=== PATIENT | female | born 1995 | race Caucasian/White ===

== ENCOUNTER 2018-12-14 21:18 | Emergency (ER) | payer BC ==
[2018-12-14 21:26] VITALS: BP 129/79
--- NOTE | 2018-12-14 21:41 | EDPHY ---
H & P Stated Complaint: tripped hit moth on counter top teeth wetn through lip, teeth intack Time Seen by Provider: 12/14/18 21:34 HPI/ROS: HPI: This is a 23-year-old female who presents with Chief Complaint: tripped hit mouth on counter top teeth went through lip, teeth intact Location: Upper lip and lower lip Quality: Injury Duration: Prior to arrival Signs and Symptoms: + bleeding, no radiation, no numbness, no weakness, no tingling, no incontinence, no decreased range of motion, no swelling, + pain, no fever Timing: Acute Severity: Moderate Context: Patient is student at [employer], was drinking alcohol this evening with her sorority sisters when she accidentally tripped over her pant leg that was too long and fell forward into the counter top. She reports that she was not able to put her hands out to stop her fall and her mouth directly hit the counter top. Her top teeth went through her upper lip but denies any tooth loosening, tooth trauma. She also notes of cut at the bottom of her lip near her gumline. The area started to bleed but it immediately stopped with direct pressure. Denies LOC/head injury/neck pain/ dizziness/nausea/vomiting/amnesia. Reports tetanus is current. Friend at bedside witnessed entire injury and reports behaving at baseline mentation and no loss of consciousness. Modifying Factors: Tetanus up-to-date Comment: ROS: A comprehensive 10 system review of systems is otherwise negative aside from elements mentioned in the history of present illness. MEDICAL/SURGICAL/SOCIAL HISTORY: Medical history: Generally healthy. Does not take any regular medications. Currently on menses. Surgical history: Denies Social history: Student at [employer]. Admits to marijuana and alcohol use. Some day tobacco user. CONSTITUTIONAL: Slightly anxious polite young adult white female, awake and alert, no obvious distress HEENT: Atraumatic and normocephalic, PERRL, EOMI. no globe entrapment, no raccoon eyes. no Davis signs.Tympanic membranes clear. No tympanic membrane rupture. Nares patent; no septal hematoma. Oropharynx clear, no exudate and moist pink mucosa. No malocclusion. no dental trauma. Upper lip shows 2.5 cm through and through laceration with no active bleeding with vermilion border involvement. Bottom lip at the gumline near the front teeth show 4 cm laceration. Airway patent. No lymphadenopathy. NECK: supple, no midline tenderness, flexion 45 degrees, extension 45 degrees, right and left lateral flexion 45 degrees. Cardiovascular: Normal S1/S2, tachycardia, regular rhythm, without murmur rub or gallop. PULMONARY/CHEST: Symmetrical and nontender. no crepitus. Clear to auscultation bilaterally. Good air movement. No accessory muscle usage. ABDOMEN: Soft, nondistended, nontender, no ecchymosis, no rebound, no guarding , no peritoneal signs, no masses or organomegaly. No CVAT. EXTREMITIES: 2/2 pulses, no deformities, no clubbing, no cyanosis or edema. NEUROLOGICAL: no focal neuro deficits. GCS 15. Speech fluent. SKIN: Warm and dry, no erythema. no rash. Good capillary refill. Source: Patient Exam Limitations: No limitations - Personal History LMP (Females 10-55): 1-7 Days Ago Current Tetanus Diphtheria and Acellular Pertussis (TDAP): Yes - Medical/Surgical History Hx Asthma: No Hx Chronic Respiratory Disease: No Hx Diabetes: No Hx Cardiac Disease: No Hx Renal Disease: No Hx Cirrhosis: No Hx Alcoholism: No Hx HIV/AIDS: No Hx Splenectomy or Spleen Trauma: No Other PMH: none - Social History Smoking Status: Current some day smoker Constitutional: Initial Vital Signs Temperature (C) 37.3 C 12/14/18 21:22 Heart Rate 115 H 12/14/18 21:22 Respiratory Rate 16 12/14/18 21:22 Blood Pressure 129/79 H 12/14/18 21:22 O2 Sat (%) 97 12/14/18 21:22 O2 Delivery Mode Room Air Allergies/Adverse Reactions: No Known Allergies Allergy (Unverified 12/14/18 21:25) Home Medications: Medication Instructions Recorded NK [No Known Home Meds] 12/14/18 Medical Decision Making Procedures: Procedure: Hever border laceration Repair. Verbal consent was obtained from the patient. The 2.5 cm, irregular laceration of the upper lip, measured by the extent of the laceration on the skin was anesthetized in the usual fashion using 3 mL of 1% lidocaine without epinephrine. The wound extends past the hever border. The wound was cleaned per protocol, draped and explored to its base with a gloved finger. The hever border was closed with good approximation of the edges. The wound was repaired with 2 layer closure; mucosal layer closed with #2, 5 0 Vicryl and skin was closed with #4, 6 0 Prolene. The procedure was performed by myself. Procedure: Laceration repair. Verbal consent was obtained from the patient. The 4 cm, simple, deep lower buccal laceration was anesthetized in the usual fashion using 3 mL of 1% lidocaine without epinephrine. The wound was irrigated, draped and explored to its base with a gloved finger. There were no deep structures involved. No tendon injury was identified. The wound was repaired with #6, 5-0 Vicryl. The procedure was performed by myself. ED Course/Re-evaluation: Tetanus is up-to-date. Upper and lower lip laceration. Upper lip is through and through with vermilion border involvement. Lower lip is at the buccal mucosa. Three lacerations were repaired. Verbal and written wound care instructions provided No dental trauma/head injury/signs of concussion. This patient was seen under the supervision of my secondary supervising physician. I evaluated and cared for this patient independently. Differential Diagnosis: Head injury including but not limited to concussion, skull fracture, intraparenchymal contusion, subarachnoid, subdural and epidural hematoma. Departure - Departure Disposition: Home, Routine, Self-Care Clinical Impression: Laceration of vermilion border of upper lip without complication Qualifiers: Encounter type: initial encounter Qualified Code(s): S01.511A - Laceration without foreign body of lip, initial encounter Laceration of lower lip Qualifiers: Encounter type: initial encounter Qualified Code(s): S01.511A - Laceration without foreign body of lip, initial encounter Condition: Good Instructions: Facial Laceration (ED), Care For Your Stitches (ED), Care For Your Absorbable Stitches (ED) Additional Instructions: Follow up with a dentist in the next week if any concerns of dental trauma. Eat a soft diet until pain free. Avoid any spicy/salty foods until fully healed. Swish and spit after every meal and at bedtime with dilute hydrogen peroxide; 50 /50 mixture of warm water and Hydrogen peroxide x 5 days. Take Tylenol 650 mg every 4 hr and/or ibuprofen 600 mg every 8 hr as needed for pain. The Sutures on the inside of your upper and lower lip will slowly dissolve over time. If you wish for scar revision, follow-up with plastic surgery in 3-6 months. Wound Care Follow-Up: Removal of sutures on upper outer lip [ 7 ] days. Suture removal is complimentary in uncomplicated cases. Infection or abnormal findings would require reevaluation by the MD. In that case, you may be billed. Referrals: Valerio Villalobos JR, MD [Medical Doctor] - As per Instructions
[2018-12-14] MEDS ORDERED: OXYCODONE/APAP 5/325MG PREPACK#4 BTL TAKEHOME ONE (22:13)
== END 2018-12-14 22:22 | disposition home or self-care (01) ==
PROC: 0CQ0XZZ Repair Upper Lip, External Approach (ICD-10-PCS; principal; 2018-12-14)
PROC: 0CQ4XZZ Repair Buccal Mucosa, External Approach (ICD-10-PCS; principal; 2018-12-14)
DX: S01.511A Laceration without foreign body of lip, initial encounter (principal); F10.99 Alcohol use, unspecified with unspecified alcohol-induced disorder; W01.190A Fall on same level from slipping, tripping and stumbling with subsequent striking against furniture, initial encounter